=== PATIENT | male | born 1930 | race Caucasian/White ===

== ENCOUNTER 2016-09-15 07:02 | Outpatient (CLI) | payer MEDICARE, OTHER | END 2016-09-15 07:03 | disposition home or self-care (01) | DX: I25.10 Atherosclerotic heart disease of native coronary artery without angina pectoris (principal); E78.2 Mixed hyperlipidemia; R97.20 Elevated prostate specific antigen [PSA]; Z79.899 Other long term (current) drug therapy ==

== ENCOUNTER 2016-10-19 11:41 | Outpatient (CLI) | payer MEDICARE, OTHER | END 2016-10-19 11:42 | disposition home or self-care (01) | DX: R05 Cough (principal) ==

== ENCOUNTER 2016-10-28 19:29 | Emergency (ER) | payer MEDICARE, OTHER ==
--- NOTE | 2016-10-28 21:22 | XRAY Preliminary Report ---
Exam: XR Chest 2 View PA/LAT IMPRESSION: Normal 2-view chest radiography. [facility] SITE ID: [id number]
--- NOTE | 2016-10-28 21:25 | XRAY Report ---
EXAM: CHEST RADIOGRAPHY EXAM DATE: 10/28/2016 08:56 PM. CLINICAL HISTORY: Left arm pain, and numbness. COMPARISON: 10/19/2016. TECHNIQUE: 2 views. FINDINGS: Lungs/Pleura: No focal opacities evident. No pleural effusion. No pneumothorax. Normal volumes. Mediastinum: Heart and mediastinal contours are unremarkable. Other: None. IMPRESSION: Normal 2-view chest radiography. [facility] Referring Provider Line: [phone] SITE ID: [id number]
--- NOTE | 2016-10-28 21:26 | CT Preliminary Report ---
Exam: CT Head W/O IMPRESSION: Complex right subdural collection, with approximately 5 mm right to left midline shift an d mass effect upon the right lateral ventricle. The collection measures up to 1.5 cm thick, and demon strates multiple loculations. Critical result: Results called to Dr. Onofre in the emergency Department on 10/28/2016 and 9:20 P M. ARTURO SITE ID: [id number]
--- NOTE | 2016-10-28 21:29 | CT Report ---
EXAM: CT HEAD EXAM DATE: 10/28/2016 08:59 PM. CLINICAL HISTORY: Confusion, left arm pain and numbness. COMPARISON: None. TECHNIQUE: Multiaxial CT images were obtained from the foramen magnum to the vertex. IV contrast: Non e. Reformats: Coronal. In accordance with CT protocol optimization, one or more of the following dose reduction techniques w ere utilized for this exam: automated exposure control, adjustment of mA and/or KV based on patient s ize, or use of iterative reconstructive technique. FINDINGS: Parenchyma: There is a 5 mm right to left midline shift, secondary to a complex right subdural collec tion. No intraparenchymal hemorrhage is identified. No intra-axial mass is seen. 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 Ventricles: Mass effect upon the right lateral ventricle. No evidence of developing hydrocephalus. Sinuses: Mild mucosal thickening in left maxillary sinus. No air-fluid levels. Bones: No evidence of fracture or calvarial defect. Other: None. IMPRESSION: Complex right subdural collection, with approximately 5 mm right to left midline shift an d mass effect upon the right lateral ventricle. The collection measures up to 1.5 cm thick, and demon strates multiple loculations. Critical result: Results called to Dr. Onofre in the emergency Department on 10/28/2016 and 9:20 P M. WILLOW Referring Provider Line: [phone] SITE ID: [id number]
[2016-10-28 21:30] LABS: BASOPHILS % (AUTO) 0.7 %; EOSINOPHILS # (AUTO) 0.1 10^3/uL (0.0-0.7); HGB - HEMOGLOBIN 13.1 g/dL (14.0-18.0); LYMPHOCYTES # (AUTO) 1.3 10^3/uL (1.5-3.5); LYMPHOCYTES % (AUTO) 17.8 %; MEAN CORPUSCULAR HEMOGLOBIN 30.1 pg (27.0-31.0); MEAN CORPUSCULAR HGB CONC 33.5 g/dL (32.0-36.0); MEAN PLATELET VOLUME 7.8 fL (7.4-11.4); MONOCYTES # (AUTO) 0.7 10^3/uL (0.0-1.0); MONOCYTES % (AUTO) 10.3 %; NEUTROPHILS # (AUTO) 4.9 10^3/uL (1.5-6.6); NEUTROPHILS % (AUTO) 69.2 %; RED BLOOD COUNT 4.34 10^6/uL (4.70-6.10); RED CELL DISTRIBUTION WIDTH 14.5 % (12.0-15.0); UNCORRECTED WHITE BLOOD COUNT 7.1 x10^3/uL; WHITE BLOOD COUNT 7.1 x10^3/uL (4.8-10.8)
[2016-10-28 21:32] LABS: INR 1.1 (0.8-1.2); PT - PROTHROMBIN TIME 12.5 secs (9.9-12.6)
[2016-10-28 21:40] LABS: PARTIAL THROMBOPLASTIN TIME 29.6 secs (24.9-33.3)
[2016-10-28 21:45] LABS: ALBUMIN/GLOBULIN RATIO 1.3 (1.0-2.2); BILIRUBIN,TOTAL 0.7 mg/dL (0.2-1.0); CALCIUM 9.2 mg/dL (8.5-10.3); POTASSIUM 4.5 mmol/L (3.5-5.0); TOTAL PROTEIN 7.1 g/dL (6.7-8.2)
[2016-10-28 21:47] LABS: BILIRUBIN,URINE NEGATIVE (NEGATIVE); PH,URINE 6.5 PH (5.0-7.5)
[2016-10-28 21:48] LABS: UA CHARGE (STRIP ONLY) YES; UR CULTURE IF IND NOT INDICATED
--- NOTE | 2016-10-28 22:04 | ED Physician Documentation ---
History of Present Illness - Stated complaint Stated Complaint: L ARM/NECK PX - Chief complaint Chief Complaint: Neuro - History obtained from History obtained from: Patient, Family - History of Present Illness Timing: Yesterday - Additonal information Additional information: Patient is an 86 year old male with no significant past medical history who is presenting to the emergency department for cough, generalized weakness, mild headache and left arm tingling. According to patient and family over the last week patient has been dealing with bronchitis. Patient had preliminary work up done in the er that showed no signs of infection. Patient states that yesterday he felt a little bit week, but had no focal deficit. He stated he just wasn't feeling right. Patient states that he started to develop right sided neck pain with some radiation behind his eye yesterday with an episode of numbess in his left hand. Upon initial evaluation patient stated that the numbness went away but he had some pain on the right side behind his eye. Review of Systems Constitutional: reports: Chills. denies: Fever Eyes: denies: Loss of vision, Decreased vision, Photophobia Ears: denies: Ear pain, Drainage/discharge Nose: reports: Rhinorrhea / runny nose, Congestion, Sinus pressure / pain Throat: denies: Dental pain / toothache, Sore throat Cardiac: denies: Chest pain / pressure, Palpitations Respiratory: denies: Cough GI: denies: Abdominal Pain, Nausea, Vomiting : denies: Dysuria, Frequency Skin: denies: Rash, Lesions, Abrasion (s) Musculoskeletal: reports: Neck pain, Extremity pain. denies: Back pain, Joint pain, Extremity swelling Neurologic: reports: Generalized weakness, Numbness, Headache. denies: Focal weakness, Difficulty speaking, Near syncope, Syncope, Confused, Altered mental status, Head injury Psychiatric: denies: Depressed, Suicidal Immunocompromised: denies: Immunocompromised PD PAST MEDICAL HISTORY - Past Medical History Past Medical History: Yes Cardiovascular: Coronary artery disease Respiratory: None Endocrine/Autoimmune: None GI: GERD : None HEENT: None Psych: None Musculoskeletal: None Derm: None Other Past Medical History: The patient has a stent placed in 2000 - Past Surgical History Past Surgical History: No - Allergies Allergies/Adverse Reactions: Allergies Allergy/AdvReac Type Severity Reaction Status Date / Time No Known Drug Allergies Allergy Verified 10/28/16 19:41 - Social History Does the pt smoke?: No Smoking Status: Never smoker PD ED PE NORMAL - Vitals Vital signs reviewed: Yes - General General: Alert and oriented X 3, No acute distress, Well developed/nourished - HEENT HEENT: Atraumatic, PERRL, Pharynx benign - Neck Neck: Supple, no meningeal sign, No JVD - Cardiac Cardiac: RRR, No murmur - Respiratory Respiratory: No respiratory distress - Abdomen Abdomen: Soft, Non tender, Non distended - Derm Derm: Normal color, Warm and dry, No rash - Extremities Extremities: No deformity, Normal ROM s pain - Neuro Neuro: Alert and oriented X 3, 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, No motor deficit, No sensory deficit, Normal speech, Other (nih stroke scale of 0) - Psych Psych: Normal mood, Normal affect PD ED PE EXPANDED - HEENT HEENT: Ears normal, Nasal congestion, Rhinorrhea, Dry mucous membranes Results - Vitals Vitals: Vital Signs - 24 hr 10/28/16 10/28/16 10/28/16 19:41 19:52 20:10 Temperature 36.9 C 36.4 C L Heart Rate 57 L 63 53 L Respiratory 16 16 14 Rate Blood Pressure 157/72 H 226/82 H 205/67 H O2 Saturation 97 100 100 10/28/16 21:33 Temperature Heart Rate 53 L Respiratory 18 Rate Blood Pressure 198/72 H O2 Saturation 98 Oxygen O2 Source Room air - EKG (time done) 1950 Rate: Rate (enter#) (51) Rhythm: NSR [place]: Normal Intervals: Normal [place] QRS: Normal Ischemia: Normal ST segments Compare to prior EKG: Old EKG unavailable - Labs Labs: Laboratory Tests 10/28/16 10/28/16 10/28/16 20:53 20:53 21:17 WBC 7.1 RBC 4.34 L Hgb 13.1 L Hct 39.0 L MCV 90.0 MCH 30.1 MCHC 33.5 RDW 14.5 Plt Count 217 MPV 7.8 Neut # 4.9 Lymph # 1.3 L [place] # 0.7 Eos # 0.1 Baso # 0.0 Absolute Nucleated RBC 0.00 Nucleated RBCs 0.0 PT INR APTT Sodium Potassium Chloride Carbon Dioxide Anion Gap BUN Creatinine Estimated GFR (MDRD) Glucose Lactic Acid Calcium Total Bilirubin AST ALT Alkaline Phosphatase Troponin I < 0.04 Total Protein Albumin Globulin Albumin/Globulin Ratio Lipase Urine Color YELLOW Urine Clarity CLEAR Urine pH 6.5 Ur Specific [place] <=1.005 Urine Protein NEGATIVE Urine Glucose (UA) NEGATIVE Urine Ketones NEGATIVE Urine Occult Blood NEGATIVE Urine Nitrite NEGATIVE Urine Bilirubin NEGATIVE Urine Urobilinogen 0.2 (NORMAL) Ur Leukocyte Esterase NEGATIVE Ur Microscopic Review NOT INDICATED Urine Culture Comments NOT INDICATED 10/28/16 10/28/16 10/28/16 21:17 21:17 21:17 WBC RBC Hgb Hct MCV MCH MCHC RDW Plt Count MPV Neut # Lymph # [place] # Eos # Baso # Absolute Nucleated RBC Nucleated RBCs PT 12.5 INR 1.1 APTT 29.6 Sodium 135 Potassium 4.5 Chloride 100 L Carbon Dioxide 27 Anion Gap 8.0 BUN 18 Creatinine 1.0 Estimated GFR (MDRD) 71 L Glucose 97 Lactic Acid 0.8 Calcium 9.2 Total Bilirubin 0.7 AST 20 ALT 15 Alkaline Phosphatase 67 Troponin I Total Protein 7.1 Albumin 4.0 Globulin 3.1 Albumin/Globulin Ratio 1.3 Lipase 25 Urine Color Urine Clarity Urine pH Ur Specific [place] Urine Protein Urine Glucose (UA) Urine Ketones Urine Occult Blood Urine Nitrite Urine Bilirubin Urine Urobilinogen Ur Leukocyte Esterase Ur Microscopic Review Urine Culture Comments - Rads (name of study) ct head Radiology: Final report received (complex right subdural collection with 5mm shift) chest x-ray Radiology: Final report received (no acute disease process) PD MEDICAL DECISION MAKING - ED course Complexity details: reviewed old records, reviewed results, re-evaluated patient , considered differential, d/w patient, d/w family, d/w human resources consultant ED course: Patient was seen and examined at bedside. IV access was gained and labs were drawn. ekg was performed and was normal sinus. Patient was sent for imaging. When patient returned the results were reviewed. Patient had a subdural with acute and chronic changes with a 5mm left shift. Patient had no focal deficit. Multiple hospitals were contacted and the case was discussed with [facility]. Case was discussed with dr. Brar who accepted the patient. Due to the distance and multiple possibilities of delay it was decided to airlift the patient. patient was treated with 10mg of hydralize. Preparations were made and patient was transferred in stable condition. Departure - Departure Disposition: 02 Transfer Acute Care Hosp Clinical Impression: Subdural hematoma Condition: Critical
[2016-10-28] MEDS ORDERED: hydrALAZINE INJ 20 MG/ML VIAL IVP STA (22:06)
[2016-10-28] MEDS ORDERED: hydrALAZINE INJ 20 MG/ML VIAL ONE (22:10)
[2016-10-28 22:54] VITALS: BP 194/84
== END 2016-10-28 22:40 | disposition short-term general hospital (02) ==
LOC: ED 19:29
DX: I62.01 Nontraumatic acute subdural hemorrhage (principal); I25.10 Atherosclerotic heart disease of native coronary artery without angina pectoris; Z95.5 Presence of coronary angioplasty implant and graft
CPT/HCPCS: 36415; 70450; 71020; 80053; 81001; 81003; 83605; 83690; 84484; 85025; 85610; 85730; 87040; 87086; 93005; 93010; 96372; 96374; 99285

== ENCOUNTER 2017-02-03 15:08 | Outpatient (CLI) | payer MEDICARE, OTHER ==
--- NOTE | 2017-02-04 09:14 | XRAY Report ---
BILATERAL HIPS AND PELVIS: 02/03/2017 CLINICAL INDICATION: Chronic bilateral pain. FINDINGS: Frontal and frogleg lateral views of the hips and pelvis demonstrate mild osteoarthritis o f both hips. There is no evidence of acute fracture or dislocation. Degenerative changes are also n oted in the sacroiliac joints. IMPRESSION: MILD BILATERAL HIP OSTEOARTHRITIS. JOB #: [id number] EXT JOB #:[id number]
--- NOTE | 2017-02-04 09:15 | XRAY Report ---
TWO-VIEW LUMBAR SPINE: 02/03/2017 CLINICAL INDICATION: Chronic low back pain. FINDINGS: Frontal and lateral views of the lumbar spine demonstrate extensive degenerative disc and facet disease, with degenerative levoscoliosis. Vascular calcifications are seen. There is no evide nce of compression fracture. IMPRESSION: EXTENSIVE DEGENERATIVE CHANGES. JOB #: [id number] EXT JOB #:[id number]
== END 2017-02-03 15:09 | disposition home or self-care (01) ==
LOC: DI 15:08
PROVIDERS: ATTEND Internal Medicine
DX: M54.5 Low back pain (principal); M51.36 Other intervertebral disc degeneration, lumbar region; M41.86 Other forms of scoliosis, lumbar region; M16.0 Bilateral primary osteoarthritis of hip; M25.551 Pain in right hip
CPT/HCPCS: 72100; 73521

== ENCOUNTER 2017-02-10 09:25 | Outpatient (CLI) | payer MEDICARE, OTHER | END 2017-02-10 09:26 | disposition home or self-care (01) | LOC: LAB.R 09:25 | PROVIDERS: ATTEND Internal Medicine | DX: M25.551 Pain in right hip (principal) | CPT/HCPCS: 85651; 86140 ==

== ENCOUNTER 2017-03-17 12:38 | Outpatient (CLI) | payer MEDICARE, OTHER ==
--- NOTE | 2017-03-18 08:46 | MRI Report ---
EXAM: MRI LUMBAR SPINE WITHOUT CONTRAST EXAM DATE: 03/17/2017 01:44 PM. CLINICAL HISTORY: Low back pain. Right lower extremity radiculopathy. COMPARISON: No prior lumbar spine MRI. TECHNIQUE: Multiplanar, multisequence T1-weighted and fluid-sensitive sequences of the lumbar spine f rom T12 to S1 without contrast. Other: None. FINDINGS: Spinal Cord: The conus terminates at L1-L2. No signal abnormality in the visualized spinal cord. Alignment: Multiple minimal degenerative subluxations and 15 degrees of levoscoliosis. Bone Marrow: Five [id number] lumbar vertebral bodies are assumed. Diffuse predominantly chronic degenerative endplate signal changes associated with multiple chronic Schmorl's nodes, degenerative d isk disease, facet arthropathy and multilevel prominent degenerative marginal spurring. Disk Levels/Facets: T12-L1: No significant stenosis. Mild degenerative disk disease and moderate facet arthropathy. No fo gonzalez disk herniation. L1-L2: Moderate to marked degenerative disk disease and facet arthropathy. Marginal spurring. Diffuse annular disk bulge. Right greater than left ligamentum flavum thickening and facet arthropathy. Mild right lateral recess stenosis. Patent central canal. Mild to moderate bilateral foraminal stenosis. L2-L3: Moderate to marked degenerative disk disease and facet arthropathy. Ligamentum flavum thickeni ng, right greater than left. Mild central stenosis. Moderate to marked right lateral recess stenosis. Diffuse annular disk bulge. Moderate bilateral foraminal stenosis. L3-L4: Moderate to marked degenerative disk disease and facet arthropathy. Marginal spurring and diff use annular disk bulge. Minimal central stenosis. Mild lateral recess stenosis. Moderate bilateral fo raminal stenosis. L4-L5: Moderate to marked degenerative disk disease and facet arthropathy. Ligamentum flavum thickeni ng. Prominent broad-based disk bulge with osteophytic spurring, probably more prominent posteriorly t o the left of midline. Moderate central stenosis. Mild right but severe left lateral recess stenosis. Bilateral foraminal stenosis, mild to moderate on the right and severe on the left. L5-S1: Moderate degenerative disk disease. Moderate to marked right greater than left facet arthropat hy. Posterior element/facet joint alignment asymmetry may be partially congenital with secondary prom inent right side hypertrophic degenerative changes. Minimal disk bulge. Prominent anterior marginal s purring. Patent central canal. No significant lateral recess narrowing. Mild thecal sac indentation l aterally on the right by medially directed facet spurring but without evidence for significant nerve root impingement. Mild to moderate bilateral foraminal stenosis. Musculature: Moderately prominent diffuse posterior paraspinal muscle fatty atrophy. Other: None. IMPRESSION: 1. 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 2. Prominent degenerative stenosis of multiple zones at multiple levels. No critical-appearing centra l stenosis but there is multilevel lateral recess stenosis, especially on the right at L2-L3 and on t he left at L4-L5. 3. Multilevel degenerative foraminal stenosis, especially severe on the left at L4-L5. Comment: The following findings are so common in adults without low back pain that while we report th eir presence, they must be interpreted with caution and in the context of the clinical situation. (Re andrey Hernandez et al, Spine 2001) Prevalence of findings in patients without low back pain: Disk degeneration (any evidence): 92% Disk desiccation/T2 signal loss: 83% Disk height loss: 56% Disk bulge: 64% Disk protrusion: 32% Annular tear/high intensity zone: 38% [facility] Referring Provider Line: [phone] SITE ID: [id number]
== END 2017-03-17 12:39 | disposition home or self-care (01) ==
LOC: DI 12:38
PROVIDERS: ATTEND Orthopaedic Surgery
DX: M51.35 Other intervertebral disc degeneration, thoracolumbar region (principal); M51.36 Other intervertebral disc degeneration, lumbar region; M51.37 Other intervertebral disc degeneration, lumbosacral region; M43.05 Spondylolysis, thoracolumbar region; M43.06 Spondylolysis, lumbar region; M43.07 Spondylolysis, lumbosacral region
CPT/HCPCS: 72148

== ENCOUNTER 2017-07-26 14:54 | Outpatient (CLI) | payer MEDICARE, OTHER ==
[2017-07-26 17:32] LABS: BASOPHILS % (AUTO) 0.6 %; EOSINOPHILS # (AUTO) 0.2 10^3/uL (0.0-0.7); EOSINOPHILS % (AUTO) 2.6 %; HGB - HEMOGLOBIN 13.4 g/dL (14.0-18.0); LYMPHOCYTES # (AUTO) 1.1 10^3/uL (1.5-3.5); MEAN CORPUSCULAR HEMOGLOBIN 30.7 pg (27.0-31.0); MEAN CORPUSCULAR HGB CONC 32.6 g/dL (32.0-36.0); MEAN CORPUSCULAR VOLUME 94.3 fL (80.0-94.0); MEAN PLATELET VOLUME 8.8 fL (7.4-11.4); MONOCYTES # (AUTO) 0.7 10^3/uL (0.0-1.0); MONOCYTES % (AUTO) 10.9 %; NEUTROPHILS % (AUTO) 66.9 %; PLT - PLATELET COUNT 216 10^3/uL (130-450); RED BLOOD COUNT 4.36 10^6/uL (4.70-6.10); RED CELL DISTRIBUTION WIDTH 14.2 % (12.0-15.0)
[2017-07-26 18:01] LABS: ALBUMIN 4.2 g/dL (3.2-5.5); ALBUMIN/GLOBULIN RATIO 1.6 (1.0-2.2); BILIRUBIN,TOTAL 0.8 mg/dL (0.2-1.0); CALCIUM 9.2 mg/dL (8.5-10.3); CREATININE 1.1 mg/dL (0.6-1.2); TOTAL PROTEIN 6.8 g/dL (6.7-8.2)
== END 2017-07-26 14:55 | disposition home or self-care (01) ==
LOC: LAB.R 14:54
PROVIDERS: ATTEND Internal Medicine
DX: R53.83 Other fatigue (principal)
CPT/HCPCS: 80053; 84443; 85025

== ENCOUNTER 2017-11-12 08:00 | Outpatient (CLI) | payer MEDICARE, OTHER ==
[2017-11-12 12:42] LABS: BASOPHILS % (AUTO) 0.8 %; EOSINOPHILS # (AUTO) 0.2 10^3/uL (0.0-0.7); EOSINOPHILS % (AUTO) 3.1 %; HGB - HEMOGLOBIN 14.1 g/dL (14.0-18.0); LYMPHOCYTES # (AUTO) 1.1 10^3/uL (1.5-3.5); MEAN CORPUSCULAR HEMOGLOBIN 31.9 pg (27.0-31.0); MEAN CORPUSCULAR HGB CONC 33.6 g/dL (32.0-36.0); MEAN CORPUSCULAR VOLUME 95.1 fL (80.0-94.0); MEAN PLATELET VOLUME 8.4 fL (7.4-11.4); MONOCYTES # (AUTO) 0.6 10^3/uL (0.0-1.0); MONOCYTES % (AUTO) 10.3 %; NEUTROPHILS # (AUTO) 3.8 10^3/uL (1.5-6.6); NEUTROPHILS % (AUTO) 66.8 %; PLT - PLATELET COUNT 194 10^3/uL (130-450); RED BLOOD COUNT 4.43 10^6/uL (4.70-6.10); RED CELL DISTRIBUTION WIDTH 14.3 % (12.0-15.0); WHITE BLOOD COUNT 5.7 x10^3/uL (4.8-10.8)
[2017-11-12 12:59] LABS: ALBUMIN 3.8 g/dL (3.2-5.5); ALBUMIN/GLOBULIN RATIO 1.3 (1.0-2.2); ALKALINE PHOSPHATASE 49 IU/L (42-121); ALT ALANINE AMINOTRANSFERASE 16 IU/L (10-60); AST ASPARTATE AMINOTRANSFERASE 25 IU/L (10-42); BILIRUBIN,TOTAL 0.7 mg/dL (0.2-1.0); BUN - BLOOD UREA NITROGEN 22 mg/dL (6-20); CALCIUM 9.1 mg/dL (8.5-10.3); CARBON DIOXIDE - CO2 27 mmol/L (21-32); CHLORIDE 104 mmol/L (101-111); CHOL/HDL RATIO 3.6 (<5.0); CHOLESTEROL 236 mg/dL; CREATININE 1.1 mg/dL (0.6-1.2); GFR - MDRD 63 (>89); GLUCOSE 87 mg/dL (70-100); HDL CHOLESTEROL 65 mg/dL; LDL CHOLESTEROL,CALCULATED 145 mg/dL; LDL/HDL RATIO 2.2 (<3.6); SODIUM 138 mmol/L (135-145); TOTAL PROTEIN 6.8 g/dL (6.7-8.2); VLDL CHOLESTEROL 26 mg/dL
[2017-11-12 13:02] LABS: PSA FREE 1.65 ng/mL (0.16-2.81)
[2017-11-12 13:03] LABS: PSA TOTAL 9.41 ng/mL (0.000-2.000)
== END 2017-11-12 08:01 | disposition home or self-care (01) ==
LOC: LAB.R 08:00
PROVIDERS: ATTEND Internal Medicine
DX: N18.9 Chronic kidney disease, unspecified (principal); D64.9 Anemia, unspecified; I25.10 Atherosclerotic heart disease of native coronary artery without angina pectoris; R97.20 Elevated prostate specific antigen [PSA]
CPT/HCPCS: 80053; 80061; 83721; 84154; 85025

== ENCOUNTER 2018-01-25 08:46 | Outpatient (CLI) | payer MEDICARE, OTHER ==
[2018-01-25 14:12] LABS: ALT ALANINE AMINOTRANSFERASE 20 IU/L (10-60); AST ASPARTATE AMINOTRANSFERASE 24 IU/L (10-42); LDL CHOLESTEROL,DIRECT 173 mg/dL
== END 2018-01-25 08:47 ==
LOC: LAB.R 08:46
PROVIDERS: ATTEND Internal Medicine
DX: I25.10 Atherosclerotic heart disease of native coronary artery without angina pectoris (principal)
CPT/HCPCS: 83721; 84450; 84460

== ENCOUNTER 2020-09-14 12:51 | Outpatient (CLI) | payer MEDICARE, OTHER ==
--- NOTE | 2020-09-14 15:36 | Ultrasound Report ---
PROCEDURE: Bladder INDICATIONS: BENIGN PROSTATIC HYPERPLASIA W/ LOWER UTI TECHNIQUE: Real-time ultrasound scanning was performed of the bladder, with image documentation. COMPARISON: None. FINDINGS: The prevoid bladder volume is 243 cc. The post void bladder volume is 121 cc. Both ureteral jets ca n be seen. The prostate measures 6 x 4.1 x 5.8 cm, with a calculated volume of 74 cc. 1.8 cm calcification can b e seen within the prostate. IMPRESSION: Moderate postvoid residual, 121 cc. Prominent prostate with prostatic calcification noted. Reviewed by: Jose Vega MD on 09/14/2020 2:35 PM [facility] Approved by: Jose Vega MD on 09/14/2020 2:35 PM [facility] Station ID: [id number]
== END 2020-09-14 12:52 | disposition home or self-care (01) ==
LOC: DI 12:51
PROVIDERS: ATTEND Family Medicine
DX: N40.1 Benign prostatic hyperplasia with lower urinary tract symptoms (principal); R35.1 Nocturia; R32 Unspecified urinary incontinence

== ENCOUNTER 2020-11-27 18:39 | Emergency (ER) | payer MEDICARE, OTHER ==
--- NOTE | 2020-11-27 19:05 | ED Physician Documentation ---
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 Denies LOC but has gradually developed right-sided OGLESBY. His chief concern for this scenario is that in 2017, he had a head injury for which he did not seek medical attention until a few months later for symptoms he did not think were related to the head injury, but he was found to have complex SDH with shift, requiring transfer and subsequent clot evacuation. Review of Systems Eyes: denies: Loss of vision, Photophobia GI: denies: Nausea, Vomiting Skin: reports: Abrasion (s) (left forehead) Musculoskeletal: reports: Reviewed and negative Neurologic: reports: Headache, Head injury. denies: Generalized weakness, Focal weakness, Numbness, Altered mental status, Unresponsive, LOC PD PAST MEDICAL HISTORY - Past Medical History Cardiovascular: Coronary artery disease Respiratory: None Endocrine/Autoimmune: None GI: GERD : None HEENT: None Psych: None Musculoskeletal: None Derm: None - Past Surgical History Past Surgical History: No - Allergies Allergies/Adverse Reactions: Allergies Allergy/AdvReac Type Severity Reaction Status Date / Time No Known Drug Allergies Allergy Verified 11/27/20 18:52 - Social History Does the pt smoke?: No Smoking Status: Never smoker PD ED PE NORMAL - Vitals Vital signs reviewed: Yes - General General: Alert and oriented X 3, No acute distress, Well developed/nourished - HEENT HEENT: PERRL, EOMI, Moist mucous membranes, Other (superficial abrasions to left forehead) - Neck Neck: No bony TTP - Cardiac Cardiac: RRR, No murmur - Respiratory Respiratory: No respiratory distress, Clear bilaterally - Neuro Neuro: Alert and oriented X 3, lean manufacturing engineer 2-12 intact, No motor deficit, No sensory deficit, Normal speech Eye Opening: Spontaneous Motor: Obeys Commands Verbal: Oriented GCS Score: 15 Results - Vitals Vitals: Vital Signs - 24 hr 11/27/20 11/27/20 18:53 20:54 Temperature 37.1 C 36.1 C L Heart Rate 54 L 64 Respiratory 16 16 Rate Blood Pressure 150/64 H 174/66 H O2 Saturation 98 Oxygen O2 Source Room air - Rads (name of study) CT head Radiology: Prelim report reviewed, See rad report PD MEDICAL DECISION MAKING - ED course Complexity details: reviewed old records, reviewed results, re-evaluated patient, considered differential, d/w patient ED course: no acute findings on CTH. On reevaluation, he is in NAD and is reassured by this finding, is comfortable going home. I discussed results with him, including finding of possible old CVA; he thinks he was told he had a stroke in the past, but will f/u with his PMD regarding this incidental finding Departure - Departure Disposition: 01 Home, Self Care Clinical Impression: Head contusion Condition: Good Instructions: ED Mechanical Fall, ED Head Injury Closed Discharge Date/Time: 11/27/20 20:56
--- NOTE | 2020-11-27 19:55 | CT Report ---
PROCEDURE: HEAD WO INDICATIONS: fall, head injury, h/o ICH TECHNIQUE: Noncontrast 4.5 mm thick angled axial sections acquired from the foramen magnum to the vertex. For r adiation dose reduction, the following was used: automated exposure control, adjustment of mA and/or kV according to patient size. COMPARISON: Head CT 10/28/2016. FINDINGS: Image quality: Excellent. CSF spaces: Basal cisterns are patent. No extra-axial fluid collections. Ventricles are normal in size and shape. Brain: No midline shift. No intracranial masses or hemorrhage. Subtle hypodensity in the region of the right basal ganglia which is new compared to 2017. This is consistent with prior the cannot infar ct. Periventricular hypodensity consistent with chronic microvascular disease. Age related parenchyma l loss similar the prior exam. Skull and face: Prior right craniotomy. Calvarium and visualized facial bones are intact, without don spicious lesions. Sinuses: Mildly mucosal thickening in the left maxillary sinus. Mastoids are clear. IMPRESSION: No acute intracranial abnormality. 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 Reviewed by: Adan Jorge MD on 11/27/2020 7:54 PM PDT Approved by: Adan Jorge MD on 11/27/2020 7:54 PM PDT Station ID: [id number]
[2020-11-27 20:56] VITALS: BP 174/66
== END 2020-11-27 20:56 | disposition home or self-care (01) ==
LOC: ED 18:39
DX: S00.83XA Contusion of other part of head, initial encounter (principal); W19.XXXA Unspecified fall, initial encounter; Y93.H2 Activity, gardening and landscaping; Y92.007 Garden or yard of unspecified non-institutional (private) residence as the place of occurrence of the external cause
CPT/HCPCS: 99282; 99284